=== PATIENT | female | born 1960 | race Two or more races ===

== ENCOUNTER 2025-09-02 06:11 | Day surgery (SDC) | payer SELFPAY ==
[2025-08-27 15:29] LABS: Hematocrit 43.2 % (36.0-46.0); Hemoglobin 14.5 g/dL (12.2-16.2); Mean Corpuscular Hemoglobin 31.3 pg (28.0-32.0); Mean Corpuscular Volume 93.1 fL (80.0-100.0); Nucleated Red Blood Cells % 0.1 %
[2025-08-27 15:46] LABS: Alanine Aminotransferase 21 U/L (7-40); Albumin 4.8 g/dL (3.2-4.8); Alkaline Phosphatase 85 U/L (46-116); Anion Gap 8 (5-15); BUN/Creatinine Ratio 14.9 (10.0-20.0); Bilirubin, Total 0.3 mg/dL (0.2-1.0); Blood Urea Nitrogen 15 mg/dL (9-23); Calcium 9.4 mg/dL (8.7-10.4); Carbon Dioxide 28 mmol/L (20-31); Chloride 107 mmol/L (98-107); Glucose 87 mg/dL (74-106); Potassium 4.2 mmol/L (3.5-5.1); Sodium 143 mmol/L (136-145); Total Protein 7.9 g/dL (5.7-8.2)
[2025-08-27 15:50] LABS: Urine Amorphous Crystal FEW /hpf (None Seen); Urine Budding Yeast OCCASIONAL /hpf (None Seen); Urine Protein, UAD Negative (Negative)
[2025-08-27 16:36] LABS: INR 0.97 (0.9-1.15); Partial Thromboplastin Time 27.7 SEC (24.5-34.5); Prothrombin Time 10.3 sec (9.3-11.8)
[~2025-09-02] VITALS: Ht 157.5 cm; Wt 68.9 kg
[~2025-09-02 06:11] MED LIST: ATOG60TA PO; ATOR40TA52 PO; ESCI20TA PO; FLUT1SPR5; TOPI100T29 PO
[2025-09-02] MEDS ORDERED: ceFAZolin 2 GM/D5W50ml 50 ML IV ONE (06:41)
[2025-09-02] MEDS ORDERED: ONDANSETRON HCL 4 MG/2 ML VIAL ONE (06:53)
[2025-09-02] MEDS ORDERED: LIDOCAINE 1% INJ PF 5ML AMP ONE (06:53)
[2025-09-02] MEDS ORDERED: KETOROLAC TROMETH 30 MG/ML 1ML VIAL ONE (06:53)
[2025-09-02] MEDS ORDERED: GLYCOPYRROLATE 0.2 MG/ML 1ML VIAL ONE (06:54)
[2025-09-02] MEDS ORDERED: PROPOFOL 10 MG/ML 20 ML IV ONE (06:54)
[2025-09-02] MEDS: BUPIVACAINE 0.25% INJ 50ML VIAL ONE (07:20)
[2025-09-02] MEDS: LIDOCAINE 1% HCL (LOCAL ANESTH.) INJ 20ML MDV ONE (07:20)
[2025-09-02 07:36] VITALS: PULSE 67; RESP 17; TEMP 97.4; O2SAT 97
[2025-09-02] MEDS ORDERED: NALOXONE HCL 0.4 MG/ML VIAL IV PRN (07:45)
[2025-09-02] MEDS ORDERED: ONDANSETRON HCL 4 MG/2 ML VIAL IV PRN (07:45)
[2025-09-02] MEDS ORDERED: HYDROmorphone HCL 2 MG/ML VL/or syr IV PRN (07:45)
[2025-09-02] MEDS ORDERED: FLUMAZENIL 0.1 MG/ML INJ 10ML MDV IV PRN (07:45)
[2025-09-02] MEDS ORDERED: hydrALAZINE HCL 20 MG/ML VL IV PRN (07:45)
[2025-09-02] MEDS ORDERED: fentaNYL CITRATE 100 MCG/2 ML VL IV PRN (07:45)
[2025-09-02 07:51] VITALS: BP 147/66; PULSE 63; RESP 16; O2SAT 98
--- NOTE | 2025-09-02 18:25 | DVHOP2 ---
Operative Report - 2 Report Details Date: 09/02/25 Preop Diagnosis: Left carpal tunnel syndrome Postop Diagnosis: Left carpal tunnel syndrome Surgeon: Sebastián Matos MD Blower Mechanic: Cosmo CURTIS Anesthesiologist: Inderjit JOHANSEN Anesthesia: Mac, Local Consent: The patient was informed of the risks and benefits of the procedure. These include but are not limited to complications of anesthesia, postoperative infection, incomplete relief of symptoms, recurrence of symptoms, damage to blood vessels, nerves and tendons, deep venous thrombosis, pulmonary embolism and possible need for repeat surgery in the future. Estimated Blood Loss: 2 cc Name of Procedure Performed Left carpal tunnel release, flexor tendon debridement Procedure Details Procedure Details: Indications: she has had EMG/NCV testing that is consistent with his clinical exam. she wishes to proceed with surgical intervention. Risks/benefits/options and alternatives were discussed in depth with patient. Risks include but not exclusive to: bleeding, infection, nerve injury, chronic pain, stiffness, motor or sensory paralysis, loss of limb, deep venous thrombosis, and . PROCEDURE IN DETAIL: Patient was seen in the preoperative area. Consent was signed and then he was taken to the operating room. With the patient under adequate anesthesia, the upper extremity was prepped and draped in a sterile manner. The arm was exsanguinated. The tourniquet was elevated at 250 mm/Hg. Construction lines were made on the palm to identify the ring ray. 3 cm vertical incision made in mid-palm. Blunt dissection exposed the antebrachial fascia. Hemostasis was obtained with bipolar cautery. A distal-based window in the antebrachial fascia was then fashioned. Care was taken to protect the underlying contents. Careful dissection carried down to The transverse carpal ligament was easily visualized. the transverse carpal ligament was then divided. Flexor tendon noted to have synovitis and this was gently debrided. The wound was then closed with 3-0 nylon for carpal tunnel. sterile dressing was applied. The tourniquet was deflated. The patient was awakened from anesthesia and returned to the Recovery Room in satisfactory condition, having tolerated the procedure well. Condition Good Disposition Home SEBASTIÁN MATOS MD Sep 02, 2025 18:25
== END 2025-09-02 08:10 | disposition home or self-care (01) ==
LOC: SUR 06:11
PROVIDERS: ATTEND Orthopaedic Surgery Adult Reconstructive Orthopaedic Surgery
DX: G56.02 Carpal tunnel syndrome, left upper limb (principal); E66.3 Overweight; G43.909 Migraine, unspecified, not intractable, without status migrainosus; Z79.899 Other long term (current) drug therapy; Z98.890 Other specified postprocedural states; F32.A Depression, unspecified
CPT/HCPCS: 36415; 64721; 80053; 81001; 85025; 85610; 85730; J0690; J1100; J1885; J2003; J2405; J2704; J3490